=== PATIENT | male | born 1965 | race Caucasian/White ===

== ENCOUNTER 2017-08-10 18:31 | Emergency (ER) | payer SELFPAY ==
[~2017-08-10] VITALS: Ht 170.2 cm; Wt 84.8 kg
[~2017-08-10 18:31] MED LIST: MMW SS; TRIA.1%T TOP
[2017-08-10 18:36] VITALS: BP 109/55; PULSE 79; RESP 16; TEMP 97.8; O2SAT 98
[2017-08-10] MEDS ORDERED: KETOROLAC TROMETHAMINE 60 MG/2 ML (IM) VIAL IM ONE (20:00)
[2017-08-10] MEDS ORDERED: TETANUS/DIPHTHERIA TOXOID ADULT 0.5 ML VIAL IM ONE (20:00)
[2017-08-10] MEDS ORDERED: CLIN300C5 PO (20:26)
--- NOTE | 2017-08-10 20:27 | PD ---
HPI Chief Complaint: Bite or Sting Time Seen by Provider: 19:23 Travel History International Travel<30 days: No Contact w/Intl Traveler<30days: No Traveled to known affect area: No History of Present Illness HPI 52-year-old male here with dog bite to the left hand patient has a laceration to the left thumb and puncture wound to the left ring finger. It is a family dog and up-to-date on his immunizations. The patient was attempting to break up a dog fight between 2 dogs. Denies numbness or paresthesia of the extremity. He reports moderate pain at the site of the laceration. Bleeding is well-controlled. Symptom severity is moderate. No aggravating or alleviating factors. PFSH Past Medical History Medical History: Denies Significant Hx Hx Anticoagulant Therapy: No Diabetes: No Diminished Hearing: No Influenza Vaccination: No Past Surgical History Surgical History: No Previous Surgery Social History Alcohol Use: Yes (OCC) Tobacco Use: Yes (1 PPD) Substance Use: No Allergies-Medications (Allergen,Severity, Reaction): Coded Allergies: penicillin G (Verified Allergy, Severe, Hives, 08/10/17) Reported Meds & Prescriptions Reported Meds & Active Scripts Active No Active Prescriptions or Reported Medications Review of Systems Except as stated in HPI: all other systems reviewed are Neg General / Constitutional: No: Fever Eyes: No: Visual changes HENT: No: Headaches Cardiovascular: No: Chest Pain or Discomfort Respiratory: No: Shortness of Breath Gastrointestinal: No: Abdominal Pain Genitourinary: No: Dysuria Physical Exam Narrative GENERAL: SKIN: Warm and dry. HEAD: Normocephalic. EYES: No injection or drainage. NECK: Supple, trachea midline. No JVD or lymphadenopathy. MUSCULOSKELETAL: No cyanosis, or edema. Left hand: Thumb-1.5 centimeter laceration to the lateral aspect of the thumb wound edges are 2 mm . No gross gaping wound. No tendon visualized. Patient is able to flex and extend the thumb against resistance. Normal sensation. Brisk cap refill. Left ring finger: Puncture wound to the finger pad. Small subungual hematoma encompassing one fourth of the nail with a small crack in the nail bed. I do not believe that this is a through and through puncture. It looks as though this is injuries from different teeth. He reports normal sensation in this finger. Brisk cap refill. Data Data Last Documented VS Vital Signs Date Time Temp Pulse Resp B/P (MAP) Pulse Ox O2 Delivery O2 Flow Rate FiO2 08/10/17 18:36 97.8 79 16 109/55 (73) 98 Orders Orders Wound Care (08/10/17 20:00) Ketorolac Inj (Toradol Inj) (08/10/17 20:00) Tetanus/Diphtheria Tox Adult (Tetanus/Di (08/10/17 20:00) MDM Medical Decision Making Medical Screen Exam Complete: Yes Emergency Medical Condition: Yes Differential Diagnosis Animal bite, finger laceration, puncture wound Narrative Course To 52-year-old male here for evaluation of dog bite left hand. He has a laceration to left thumb which is non-gaping. And a puncture wound to the fourth digit. The extremity and digits are neurovascularly intact. No tendon injury is suspected. I did recommend an x-ray for which patient refused. I discussed the risk of a missed finger fracture and the consequences that could result. Patient verbalizes understanding and still declines x-ray. The wounds were extensively irrigated. Sterile dressings applied. Finger splints. Antibiotics initiated. Immunization updated. He was instructed to follow up for recheck in one to 2 days Diagnosis Primary Impression: Animal bite Additional Impression: Finger laceration Qualified Codes: S61.012A - Laceration without foreign body of left thumb without damage to nail, initial encounter Referrals: Primary Care Physician Additional Instructions: Cleansed the wounds daily with soap and water. Apply a thin layer of antibiotic ointment to the wounds. Take the antibiotics as prescribed. Follow-up with her doctor in 2 days for wound recheck. Return to the emergency department if he developed new or worsening symptoms such as increasing pain, fever, purulent drainage from the site Scripts Clindamycin (Clindamycin) 300 Mg Cap 300 MG PO Q6H for Infection for 10 Days, #40 CAP 0 Refills Prov: Gardenia Mendenhall 08/10/17 Disposition: 01 DISCHARGE HOME Condition: Stable Gardenia Mendenhall Aug 10, 2017 20:27
== END 2017-08-10 20:38 | disposition home or self-care (01) ==
LOC: PHEFT 18:31
DX: S61.052A Open bite of left thumb without damage to nail, initial encounter (principal); S61.255A Open bite of left ring finger without damage to nail, initial encounter; F17.210 Nicotine dependence, cigarettes, uncomplicated; W54.0XXA Bitten by dog, initial encounter; Z88.0 Allergy status to penicillin
CPT/HCPCS: 90471; 90714; 96372; 99284; J1885